=== PATIENT | female | born 1965 | race African-American/Black ===

== ENCOUNTER 2025-02-02 09:37 | Inpatient (IN) | payer MEDICAID, OTHER ==
[~2025-02-02] VITALS: Ht 177.8 cm; Wt 75.6 kg
--- NOTE | 2025-02-02 10:21 | ED.PDOC ---
HPI Comments This is a 59 year old female presenting to the ED with chief complaint of syncope. Patient reports that she had began to experience palpitations when getting up from bed on Thursday with associated SOB, so when she got up to get her Metoprolol, she sat down on the ground and had a syncopal episode. Patient relays that she felt herself shake prior to losing consciousness and is unsure if she had seizure-like activity as it was unwitnessed. Patient states that she then got up again to try and take her Metoprolol, but had another syncopal episode. Patient notes she has a previous diagnosis of A-Flutter. Patient relays that she started to get an associated left sided headache yesterday. Patient reports that she had a previous injury on Thursday to her right knee with swelling and pain still present at this time. Patient states she was brought in by her daughter to urgent care, however, they advised her to come to the ED for her complaint today. Patient denies any nausea, vomiting, chest pain, dizziness, fever, chills, head injury, or abdominal pain. Chief Complaint: Syncope Time Seen by MD: 10:16 Reviewed Notes: Nurses Notes, Medications, Allergies Allergies: Coded Allergies: NO KNOWN ALLERGIES (Unverified , 02/02/25) Information Source: Patient, Relative (Child) Mode of Arrival: Ambulatory Severity: Moderate Timing: Days Duration: Since onset Prehospital treatment: None Radiation: No Radiation Onset: At Rest Associated Signs and Symptoms: SOB, Palpitations Past Medical History Past Medical History (Other): A-Flutter Surgical History: VISCOSITY INSPECTOR History: Denies all VISCOSITY INSPECTOR Hx Family History Family History: Family hx of heart zachariah Social History Smoker: Cigarettes Alcohol: Occasionally Drugs: Denies Drug Use Lives In: Home Constitutional: denies: chills, diaphoresis, fatigue, fever, malaise, sweats, weakness, others EENTM: denies: blurred vision, double vision, ear bleeding, ear discharge, ear drainage, ear pain, ear ringing, eye pain, eye redness, hearing loss, mouth pain, mouth swelling, nasal discharge, nose bleeding, nose congestion, nose pain, photophobia, tearing, throat pain, throat swelling, voice changes, others Respiratory: reports: shortness of breath; denies: cough, hemoptysis, orthopnea, SOB at rest, SOB with excertion, stridor, wheezing, others Cardiovascular: reports: lightheadedness, palpitations, syncope; denies: chest pain, dizzy spells, diaphoresis, Dyspnea on exertion, edema, irregular heart beat, left arm pain, PND, others Gastrointestinal: denies: abdomen distended, abdominal pain, blood streaked bowels, constipated, diarrhea, dysphagia, difficulty swallowing, hematemesis, melena, nausea, poor appetite, poor fluid intake, rectal bleeding, rectal pain, vomiting, others Genitourinary: denies: abnormal vagina bleeding, burning, dyspareunia, dysuria, flank pain, frequency, hematuria, incontinence, pain, , vagina discharge, urgency, others Neurological: reports: headache; denies: dizziness, fainting, left sided numbness, left sided weakness, numbness, paresthesia, pre-existing deficit, right sided numbness, right sided weakness, seizure, speech problems, tingling, tremors, weakness, others Musculoskeletal: reports: others (Rt knee pain and swelling); denies: back pain, gout, joint pain, joint swelling, muscle pain, muscle stiffness, neck pain Integumetry: denies: bruises, change in color, change in hair/nails, dryness, laceration, lesions, lumps, rash, wounds, others Allergic/Immunocompromised: denies: Difficulty Healing, Frequent Infections, Hives, Itching, others Hematologic/Lymphatic: denies: anemia, blood clots, easy bleeding, easy bruising, swollen glands, others Endocrine: denies: excessive hunger, excessive sweating, excessive thirst, excessive urination, flushing, intolerance to cold, intolerance to heat, une xplained weight gain, unexplained weight loss, others Psychiatric: denies: anxiety, bipolar disorder, depression, hopeless, panic disorder, schizophrenia, sleepless, suicidal, others All Other Systems: Reviewed and Negative Physical Exam General Appearance: Moderate Distress HEENT: Normal ENT Inspection, Pharynx Normal, TMs Normal Neck: Full Range of Motion, Non-Tender, Normal, Normal Inspection Respiratory: Chest Non-Tender, Lungs Clear, No Accessory Muscle Use, No Respiratory Distress, Normal Breath Sounds Cardiovascular: No Edema, No JVD, No Murmur, No Gallop, Normal Peripheral Pulses, Regular Rate/Rhythm Breast Exam: Deferred Gastrointestinal: No Organomegaly, Non Tender, No Pulsatile Mass, Normal Bowel Sounds, Soft Genitalia: Deferred Pelvic: Deferred Rectal: Deferred Extremities: No calf tenderness, Normal capillary refill, Normal inspection, Normal range of motion, Non-tender, No pedal edema Musculoskeletal : Apperance: Normal Neurologic: Alert, sheep sticker II-XII nml as Tested, No Motor Deficits, Normal Affect, Normal Mood, No Sensory Deficits Cerebellar Function: Normal Reflexes: Normal Skin: Dry, Normal Color, Warm Lymphatic: No Adenopathy Was a procedure done? Was a procedure done?: No CP Differential Dx Differential Diagnosis: Angina, IL, Pulmonary Embolus, Other (syncope ) Differential Diagnosis: CHF X-Ray, Labs, Meds, VS Vital Signs Date Time Temp Pulse Resp B/P (MAP) Pulse Ox O2 Delivery O2 Flow Rate FiO2 02/02/25 12:11 97.6 84 17 103/68 (80) 96 97.6 02/02/25 09:38 97.0 76 18 164/91 95 97.0 Lab Test 02/02/25 11:17 Range/Units White Blood Count 4.1 L 4.4-10.8 10^3/uL Red Blood Count 4.19 4.0-5.20 10^6/uL Hemoglobin 13.5 12.2-16.2 g/dL Hematocrit 39.6 36.0-46.0 % Mean Corpuscular Volume 94.6 80.0-100.0 fL Mean Corpuscular Hemoglobin 32.3 H 28.0-32.0 pg Mean Corpuscular Hemoglobin Concent 34.2 32.0-36.0 g/dL Red Cell Distribution Width 13.4 11.8-14.3 % Platelet Count 268 140-450 10^3/uL Mean Platelet Volume 6.8 L 6.9-10.8 fL Neutrophils (%) (Auto) 53.6 37.0-80.0 % Lymphocytes (%) (Auto) 35.8 10.0-50.0 % Monocytes (%) (Auto) 8.0 0.0-12.0 % Eosinophils (%) (Auto) 1.6 0.0-7.0 % Basophils (%) (Auto) 1.0 0.0-2.0 % Neutrophils # (Auto) 2.2 1.6-8.6 10 ^3/uL Lymphocytes # (Auto) 1.5 0.4-5.4 10 ^3/uL Monocytes # (Auto) 0.3 0-1.3 10 ^3/uL Eosinophils # (Auto) 0.1 0-0.8 10 ^3/uL Basophils # (Auto) 0 0-0.2 10 ^3/uL Nucleated Red Blood Cells 0.1 % Sodium Level 139 136-145 mmol/L Potassium Level 3.9 3.5-5.1 mmol/L Chloride Level 103 98-107 mmol/L Carbon Dioxide Level 25 20-31 mmol/L Anion Gap 11 5-15 Blood Urea Nitrogen 9 9-23 mg/dL Creatinine 0.73 0.550-1.02 mg/dL Glomerular Filtration Rate Calc 94 >90 mL/min BUN/Creatinine Ratio 12.3 10.0-20.0 Serum Glucose 81 74-106 mg/dL Calcium Level 9.3 8.7-10.4 mg/dL Troponin I High Sensitivity 3 L </=34 ng/L Chest XR indicates: No evidence of acute disease in the chest. CT Head indicates: 1. Chronic ischemic changes without evidence of acute intracranial process. 2. Small amount of fluid in the left mastoid air cells may be due to sterile fluid or mastoiditis. The patient's CBC is within normal limits The chemistry panel is within normal limits The troponin is negative An IV Hep-Lock was established. There is a concern that the patient had these episodes of syncope and so the patient will be admitted at this time with a diagnosis of autonomic dysfunction Images Reviewed?: Images reviewed and evaluated by me Time of 1ST Reevaluation: 12:32 Reevaluation 1ST: Unchanged Patient Education/Counseling: Diagnosis, Treatment, Prognosis Family Education/Counseling: Diagnosis, Treatment, Prognosis SEPSIS Sepsis Screen Date sepsis recognized/suspect: Feb 02, 2025 Time Sepsis recognized/suspect: 0940 Recent Procedure: No On Antibiotic Therapy: No Respiratory Rate >20: No Heart Rate >90: No Temp<36 C (96.8 F) or >38.3 C: No SBP <90 or MAP <65 mmHG: No New Acute Mental Status Change: No Is the patient on CPAP, BIPAP,: No Physician Orders Urinalysis (02/02/25 10:15) Chest Two Views Routine (02/02/25 10:15) Heplock Iv (02/02/25 10:15) Dehydration Plant Operator (02/02/25 10:15) Blood Pressure (02/02/25 10:15) Pulse Oximetry (02/02/25 10:15) Electrocardigram (02/02/25 10:15) Head Without Contrast (02/02/25 10:15) Drug Screen (02/02/25 10:15) Troponin-I Hs (02/02/25 11:15) Troponin-I Hs (02/02/25 13:15) Electrocardigram (02/02/25 11:15) Electrocardigram (02/02/25 13:15) Vital Signs Date Time Temp Pulse Resp B/P (MAP) Pulse Ox O2 Delivery O2 Flow Rate FiO2 02/02/25 12:11 97.6 84 17 103/68 (80) 96 97.6 02/02/25 09:38 97.0 76 18 164/91 95 97.0 Laboratory Tests Test 02/02/25 11:17 White Blood Count 4.1 10^3/uL (4.4-10.8) L Departure 1 Departure Time of Disposition: 12:32 Impression: Primary Impression: Autonomic dysfunction Additional Impression: Generalized weakness Disposition: ADMITTED INPATIENT Admit to: Tele Condition: Fair Critical Care Note Critical Care Time?: No Stability Stability form required: Yes Unstable for transfer: Telemetry monitoring (Telemetry monitoring required), ED Physician Assesment (Clinical assesment) Heart Score Heart Score: Heart Score Response (Comments) Value History Highly Suspicious 2 EKG Normal 0 Age 45-64 1 Risk Factors 1 or 2 risk factors 1 Troponin Normal limit 0 Total 4 I personally scribed for WANDA ARCHULETA MD ([email or web address]) on 02/02/25 at 10:21. Electronically submitted by Jaime Dwyer ([email or web address]). I personally scribed for WANDA ARCHULETA MD ([email or web address]) on 02/02/25 at 12:18. Electronically submitted by Jaime Dwyer ([email or web address]). WANDA ARCHULETA MD Feb 02, 2025 10:21
--- NOTE | 2025-02-02 10:49 | DVH ---
EXAM: CT HEAD WITHOUT CONTRAST HISTORY: [place] COMPARISON: None TECHNIQUE: Noncontrast axial CT images of the head were performed. Sagittal and coronal reformatted i mages were obtained. This CT exam was performed using 1 or more of the following dose reduction techn iques: Automated exposure control, adjustment of the mA and/or kv according to patient size, or the u se of iterative reconstruction techniques. Radiation Dose: CTDI volume is 51.97 mGy. Dose-length product is 918.67 mGy*cm FINDINGS: No intracranial hemorrhage, mass, midline shift, hydrocephalus, or evidence of acute large vessel inf arct. There is mild decreased attenuation in the periventricular white matter. There is mildly diverg ent optic gaze. The partially-visualized paranasal sinuses are clear. There is a small amount of flui d in the caudal portion of the left mastoid air cells. The right mastoid air cells and bilateral midd le ear spaces are clear. No cranial fracture or scalp edema. IMPRESSION: 1. Chronic ischemic changes without evidence of acute intracranial process. 2. Small amount of fluid in the left mastoid air cells may be due to sterile fluid or mastoiditis.
--- NOTE | 2025-02-02 10:51 | DVH ---
CLINICAL INFORMATION: 59 years old, Female; syncope. TECHNIQUE: Frontal and lateral chest radiographs were obtained. COMPARISON: None FINDINGS: Lungs: Clear. Cardiac: Heart size is within normal limits. Pulmonary vasculature: Unremarkable Mediastinum/sandra: Within normal limits. Bones: No evidence of acute osseous abnormality. Other: No other significant finding. IMPRESSION: No evidence of acute disease in the chest.
[2025-02-02 11:38] LABS: Hematocrit 39.6 % (36.0-46.0); Hemoglobin 13.5 g/dL (12.2-16.2); Mean Corpuscular Hemoglobin 32.3 pg (28.0-32.0); Mean Corpuscular Volume 94.6 fL (80.0-100.0); Nucleated Red Blood Cells % 0.1 %
[2025-02-02 11:47] LABS: Chloride 103 mmol/L (98-107); Potassium 3.9 mmol/L (3.5-5.1); Sodium 139 mmol/L (136-145)
[2025-02-02 11:48] LABS: Anion Gap 11 (5-15); Calcium 9.3 mg/dL (8.7-10.4); Carbon Dioxide 25 mmol/L (20-31)
[2025-02-02 11:53] LABS: BUN/Creatinine Ratio 12.3 (10.0-20.0); Glucose 81 mg/dL (74-106)
[2025-02-02 11:54] LABS: Blood Urea Nitrogen 9 mg/dL (9-23)
[2025-02-02 16:05] LABS: Urine Protein, UAD TRACE (Negative)
[2025-02-02 16:15] LABS: Amphetamine Screen, Urine Neg (NEGATIVE); Barbiturate Scree,Urine Neg (NEGATIVE); Benzodiazephine Screen, Urine Neg (NEGATIVE); Cocaine Screen, Urine Neg (NEGATIVE); Opiate Scree,Urine Neg (NEGATIVE)
[2025-02-02 16:16] LABS: Cannabinoid Screen, Urine Neg (NEGATIVE); Phencyclidine Screen, Urine Neg (NEGATIVE)
[2025-02-02] MEDS ORDERED: ONDANSETRON HCL 4 MG/2 ML VIAL IV PRN (17:15)
[2025-02-02] MEDS ORDERED: NITROGLYCERIN 0.4 MG SL TAB SL PRN (17:15)
[2025-02-02] MEDS ORDERED: ACETAMINOPHEN 325 MG TAB PO PRN (17:15)
[2025-02-02] MEDS ORDERED: MORPHINE SULFATE 4 MG/ML SYR/VIAL IV PRN (17:45)
--- NOTE | 2025-02-02 18:25 | DVH ---
Indication: syncope Technique: Real-time ultrasound images of the neck vessels with castillo-scale, color and wave Doppler we re obtained. Comparison: None Findings: The following peak systolic velocities were recorded in cm/sec: Right internal carotid: 104 Right common carotid: 74 Right external carotid: 74 Right internal/common carotid ratio: 1.4 Left internal carotid: 49, proximal velocity of 14 Left common carotid: 44 Left external carotid: 31 Left internal/common carotid ratio: 1.1 Right vertebral artery: Patent with normal antegrade direction of flow. Left vertebral artery: Patent with normal antegrade direction of flow. Impression: There is severely decreased velocity within the left ICA concerning for severe stenosis and/or thromb osis occlusion of the proximal left ICA. Recommend CT angiogram neck and neurology consultation. Findings discussed with WANDA ARCHULETA at 02/02/2025 08:26 PM, and acknowledged receipt and understand ing of the findings. ..
[2025-02-02] MEDS: IOHEXOL 350 MG/ML 100ML IJ ONE (18:44)
[2025-02-02 18:47] VITALS: PULSE 84; RESP 20; O2SAT 95
--- NOTE | 2025-02-02 19:07 | DVHHP2 ---
History of Present Illness Reason for Visit: Syncope History of Present Illness 59-year-old female presents for evaluation of syncopal events. Patient reports having two syncopal she felt palpitations prior to the episodes. She states that when she regained consciousness she was still having a palpitations with associated shortness for breath and diaphoresis. Currently denies any chest pain or shortness for breath. She does report a history of atrial flutter. No other acute complaints reported. Past Medical History A flutter Past Surgical History Family History Noncontributory Smoke: No ALCOHOL: none Drugs: None Lives: with Family Review of Systems Review of Systems Review of systems are currently negative otherwise addressed in HPI. Allergies: Coded Allergies: NO KNOWN ALLERGIES (Unverified , 02/02/25) Medications Current Medications Medications Dose Ordered Sig/Beata Route Start Time Stop Time Status Last Admin Dose Admin Nitroglycerin 0.4 mg Q5MINP PRN SL 02/02/25 17:15 Morphine Sulfate 2 mg Q30M PRN IV 02/02/25 17:45 Ondansetron HCl 4 mg Q4HP PRN IV 02/02/25 17:15 Acetaminophen 650 mg Q6HP PRN PO 02/02/25 17:15 Exam Vital Signs Vital Signs Date Time Temp Pulse Resp B/P (MAP) Pulse Ox O2 Delivery O2 Flow Rate FiO2 02/02/25 18:47 84 20 95 Room Air* 0 21 02/02/25 17:49 98.6 126/77 (93) 98.6 Exam Gen: 59-year-old female in mild distress. Skin: Warm, dry, normal color and texture, no rash. HEENT: Normocephalic atraumatic, mucous membranes moist and pink. Neck: Cervical and supraclavicular nodes normal without enlargement, trachea is midline, thyroid gland is normal without masses. Pulmonary: Clear to auscultation and percussion bilaterally. Cardiac: Regular rate and rhythm. No murmur Abdomen: Soft, nontender, nondistended, bowel sounds present all 4 quadrants, no guarding, no rigidity, no organomegaly. Extremities: No cyanosis, clubbing, no edema Neuro: Cranial nerves II through XII grossly intact, normal affect and speech, no focal motor deficits. Labs/Xrays ORDERING PHYSICIAN: WANDA ARCHULETA MD PROCEDURE(s): CXR2 - CHEST TWO VIEWS ROUTINE REASON: syncope ORDER NUMBER(s): [id number], ACCESSION NUMBER(s): [id number] CLINICAL INFORMATION: 59 years old, Female; syncope. TECHNIQUE: Frontal and lateral chest radiographs were obtained. COMPARISON: None FINDINGS: Lungs: Clear. Cardiac: Heart size is within normal limits. Pulmonary vasculature: Unremarkable Mediastinum/sandra: Within normal limits. Bones: No evidence of acute osseous abnormality. Other: No other significant finding. IMPRESSION: No evidence of acute disease in the chest. ATED BY: CHRISTIANO TRUJILLO DO DICTATED DATE/TIME: 02/02/25 1048 ORDERING PHYSICIAN: WANDA ARCHULETA MD PROCEDURE(s): HWOCT - HEAD WITHOUT CONTRAST REASON: [place] ORDER NUMBER(s): [id number], ACCESSION NUMBER(s): [id number] EXAM: CT HEAD WITHOUT CONTRAST HISTORY: [place] COMPARISON: None TECHNIQUE: Noncontrast axial CT images of the head were performed. Sagittal and coronal reformatted images were obtained. This CT exam was performed using 1 or more of the following dose reduction techniques: Automated exposure control, adjustment of the mA and/or kv according to patient size, or the use of iterative reconstruction techniques. Radiation Dose: CTDI volume is 51.97 mGy. Dose-length product is 918.67 mGy*cm FINDINGS: No intracranial hemorrhage, mass, midline shift, hydrocephalus, or evidence of acute large vessel infarct. There is mild decreased attenuation in the periventricular white matter. There is mildly divergent optic gaze. The partially-visualized paranasal sinuses are clear. There is a small amount of fluid in the caudal portion of the left mastoid air cells. The right mastoid air cells and bilateral middle ear spaces are clear. No cranial fracture or scalp edema. IMPRESSION: 1. Chronic ischemic changes without evidence of acute intracranial process. 2. Small amount of fluid in the left mastoid air cells may be due to sterile fluid or mastoiditis. Labs Test 02/02/25 14:00 02/02/25 13:57 02/02/25 11:17 Range/Units Urine Color Yellow Yellow Urine Clarity Turbid H Clear Urine pH 5.0 5.0-9.0 Urine Specific [place] 1.020 1.001-1.035 Urine Protein Trace H Negative Urine Ketones Trace Negative Urine Blood 1+ H Negative /uL Urine Nitrite Negative Negative Urine Bilirubin Negative Negative Urine Urobilinogen Normal Negative mg/dL Urine Leukocyte Esterase Trace Negative /uL Urine RBC 3 0 - 4 /hpf Urine Microscopic WBC 6 H 0-5 /HPF Urine Squamous Epithelial Cells Mod <5 /hpf Urine Bacteria Few H None Seen /hpf Urine Mucus Few None Seen Urine Glucose Normal Normal mg/dL Urine Opiates Screen Neg NEGATIVE Urine Fentanyl Screen Neg NEGATIVE Urine Barbiturates Screen Neg NEGATIVE Urine Phencyclidine Screen Neg NEGATIVE Urine Amphetamines Screen Neg NEGATIVE Urine Benzodiazepines Screen Neg NEGATIVE Urine Cocaine Screen Neg NEGATIVE Urine Cannabinoids Screen Neg NEGATIVE Troponin I High Sensitivity 3 L </=34 ng/L White Blood Count 4.1 L 4.4-10.8 10^3/uL Red Blood Count 4.19 4.0-5.20 10^6/uL Hemoglobin 13.5 12.2-16.2 g/dL Hematocrit 39.6 36.0-46.0 % Mean Corpuscular Volume 94.6 80.0-100.0 fL Mean Corpuscular Hemoglobin 32.3 H 28.0-32.0 pg Mean Corpuscular Hemoglobin Concent 34.2 32.0-36.0 g/dL Red Cell Distribution Width 13.4 11.8-14.3 % Platelet Count 268 140-450 10^3/uL Mean Platelet Volume 6.8 L 6.9-10.8 fL Neutrophils (%) (Auto) 53.6 37.0-80.0 % Lymphocytes (%) (Auto) 35.8 10.0-50.0 % Monocytes (%) (Auto) 8.0 0.0-12.0 % Eosinophils (%) (Auto) 1.6 0.0-7.0 % Basophils (%) (Auto) 1.0 0.0-2.0 % Neutrophils # (Auto) 2.2 1.6-8.6 10 ^3/uL Lymphocytes # (Auto) 1.5 0.4-5.4 10 ^3/uL Monocytes # (Auto) 0.3 0-1.3 10 ^3/uL Eosinophils # (Auto) 0.1 0-0.8 10 ^3/uL Basophils # (Auto) 0 0-0.2 10 ^3/uL Nucleated Red Blood Cells 0.1 % Sodium Level 139 136-145 mmol/L Potassium Level 3.9 3.5-5.1 mmol/L Chloride Level 103 98-107 mmol/L Carbon Dioxide Level 25 20-31 mmol/L Anion Gap 11 5-15 Blood Urea Nitrogen 9 9-23 mg/dL Creatinine 0.73 0.550-1.02 mg/dL Glomerular Filtration Rate Calc 94 >90 mL/min BUN/Creatinine Ratio 12.3 10.0-20.0 Serum Glucose 81 74-106 mg/dL Calcium Level 9.3 8.7-10.4 mg/dL SEPSIS Sepsis Screen Date sepsis recognized/suspect: Feb 02, 2025 Time Sepsis recognized/suspect: 1801 Recent Procedure: No On Antibiotic Therapy: No Respiratory Rate >20: No Heart Rate >90: No Temp<36 C (96.8 F) or >38.3 C: No SBP <90 or MAP <65 mmHG: No New Acute Mental Status Change: No Is the patient on CPAP, BIPAP,: No Physician Orders Admit (02/02/25 17:06) Nitroglycerin Sublingual (Ntrostat Subli (02/02/25 17:15) Stat Ekg For Chest Pain (02/02/25 17:06) Notify Md Of Changes From Base (02/02/25 17:06) Manager Security And Safety For 24 Hours (02/02/25 17:06) Emergency Dysrhythmia Protocol (02/02/25 17:06) Rhythm Strips Once Every Shift (02/02/25 17:06) Oxygen By Nasal Cannula (02/02/25 17:06) * Cardiology Consult (02/02/25 17:06) Basic Metabolic Panel (02/03/25 04:00) Ondansetron Hcl (Zofran) (02/02/25 17:15) Cardiac Diet-2gna,Lofat,Lochol (02/02/25 Dinner) Echo 2d Mode Cardiac Dop (02/02/25 17:06) Carotid Duplx W Color Dop (02/02/25 17:06) Condition: Fair (02/02/25 17:06) Acetaminophen Tablet (Tylenol Tablet) (02/02/25 17:15) Bedrest With Bathroom Privileg (02/02/25 17:06) Morphine Sulfate Injection (02/02/25 17:45) Ct Angio Neck Contrast (02/02/25 18:23) Echo 2d Mode Cardiac Dop (02/02/25 18:51) Vital Signs Date Time Temp Pulse Resp B/P (MAP) Pulse Ox O2 Delivery O2 Flow Rate FiO2 02/02/25 18:47 84 20 95 Room Air* 0 21 02/02/25 17:49 98.6 84 20 126/77 (93) 99 98.6 02/02/25 17:49 84 02/02/25 14:58 100 16 122/75 (91) 95 02/02/25 12:11 97.6 84 17 103/68 (80) 96 97.6 Laboratory Tests Test 02/02/25 11:17 White Blood Count 4.1 10^3/uL (4.4-10.8) L Assessment/Plan Assessment/Plan Assessment next tissues Plan Admit the patient to telemetry to the hospitalist Cardiology consultation Carotid ultrasound pending Echocardiogram pending Continue treatment per orders. Plan discussed with: Patient My Orders Orders - JOVAN MICHAUD Procedure Category Date Status Time Admit ADMIT 02/02/25 Transmitted 17:06 Nitroglycerin PHA 02/02/25 In Process Sublingual (Ntrostat 17:15 Stat Ekg For Chest SMITHA 02/02/25 In Process Pain 17:06 Notify Of Changes SMITHA 02/02/25 In Process From Base 17:06 Manager Security And Safety For SMITHA 02/02/25 In Process 24 Hours 17:06 Emergency Dysrhythmia SMITHA 02/02/25 In Process Protocol 17:06 Rhythm Strips Once SMITHA 02/02/25 In Process Every Shift 17:06 Oxygen By Nasal RT 02/02/25 Transmitted Cannula 17:06 * Cardiology Consult CONS 02/02/25 Transmitted 17:06 Basic Metabolic Panel LAB 02/03/25 Verified 04:00 Ondansetron Hcl PHA 02/02/25 In Process (Zofran) 17:15 Cardiac DIET 02/02/25 Transmitted Diet-2gna,Lofat,Lochol Dinner Echo 2d Mode Cardiac US 02/02/25 Logged DOP 17:06 Carotid Duplx W Color US 02/02/25 Resulted DOP 17:06 Condition: Fair SMITHA 02/02/25 In Process 17:06 Acetaminophen Tablet PHA 02/02/25 In Process (Tylenol Tablet) 17:15 Bedrest With Bathroom SMITHA 02/02/25 In Process Privileg 17:06 Morphine Sulfate PHA 02/02/25 In Process Injection 17:45 Date of Service: Feb 02, 2025 Billing Provider: JOVAN MICHAUD Common Visit Codes: [id number] INP/OBS CARE (HIGH) JOVAN MICHAUD Feb 02, 2025 19:07
--- NOTE | 2025-02-02 21:44 | DVH ---
INDICATION: pain and possible occlusion COMPARISON: Ultrasound carotid 02/02/2025 TECHNIQUE:CTA neck with intravenous contrast. 3D/MIP image postprocessing was performed and images we re used for interpretation and reporting. Radiation Dose Information: CT Dose: CTDI volume is 25.88 mGy. Dose-length product is 2.47 mGy*cm FINDINGS: Normal 3-vessel origin left-sided aortic arch with motion artifact limiting evaluation of the proxima l major arch vessels. There is also limited evaluation of the left subclavian artery due to artifact from contrast within adjacent venous structures. The visualized bilateral subclavian arteries unremar kable. Motion artifact significantly limits evaluation of the distal common carotid arteries with the visualized common carotid arteries unremarkable. No significant atherosclerotic calcification of the carotid bulbs bilaterally. There is tortuosity of the right mid cervical ICA. Otherwise, the right ICA is unremarkable. There is ectasia of the most proximal left cervical ICA with moderate to severe diminutive appearance of the remainder of the left cervical ICA and left intracranial ICA. There is focal severe narrowing of the left cavernous ICA. Mild hypoplasia of the left MCA compared to the right. Bilateral cervical vertebral arteries unremarkable with slight dominance of the right. There is 0.8 cm right thyroid lobe nodule. Mediastinal lymphadenopathy which may be reactive. Biapica l emphysematous changes. Moderate to severe degenerative changes of the cervical spine. IMPRESSION: Artifact limits evaluation of the proximal brachiocephalic, common carotid and left subclavian artery with also limited evaluation of the distal bilateral common carotid arteries by motion. Ectatic appearance of the left proximal cervical ICA with moderate to significant diminutive appearan ce of the remainder of the left cervical and intracranial ICAs with focal significant narrowing of th e left cavernous intracranial ICA. Tortuosity of the right mid cervical ICA. Otherwise, the right cervical ICA is unremarkable. Distal internal carotid artery diameter as the denominator for stenosis measurement: MILD = <50% stenosis. MODERATE = 50-69% stenosis. SEVERE = 70-89% stenosis. CRITICAL = 90-99% stenosis. OCCLUDED = 100% stenosis. All CT scans at this medical facility are performed using dose modulation techniques as appropriate t o a performed exam including the following: Automated exposure control was utilized; adjustment of th e MA and/or KV according to patient size; and use of iterative reconstruction technique. CAROTID STENOSIS REFERENCE
--- NOTE | 2025-02-02 22:19 | DVHINCON2 ---
Date of service: Feb 02, 2025 Referring Physician Kali Reason for Consultation Syncope History of Present Illness This is a 59 year old female with a PMH of A-Flutter who presented to the ED with a complaint of syncope. Patient reports that she had began to experience heart palpitations when getting up from bed on Thursday with associated SOB, so when she got up to get her Metoprolol, she sat down on the ground and had a syncopal episode. Patient relays that she felt herself shake prior to losing consciousness and is unsure if she had seizure-like activity as it was unwitnessed. Patient states that she then got up again to try and take her Metoprolol, but had another syncopal episode. Patient notes she has a previous diagnosis of A-Flutter. Patient relays that she started to get an associated left sided headache yesterday. Patient reports that she had a previous injury on Thursday to her right knee with swelling and pain still present at this time. Patient states she was brought in by her daughter to urgent care, however, they advised her to come to the ED for her complaint today. Troponin is negative. Chest x-ray shows NAD. Patient was admitted to the hospital. I am asked to consult on this patient. Allergies: Coded Allergies: NO KNOWN ALLERGIES (Unverified , 02/02/25) Current Medications Current Medications Medications (Trade) Dose Ordered Sig/Beata Route PRN Reason Start Time Stop Time Status Last Admin Nitroglycerin (Ntrostat Sublingual) 0.4 mg Q5MINP PRN SL FOR CHEST PAIN 02/02/25 17:15 Morphine Sulfate 2 mg Q30M PRN IV FOR CHEST PAIN 02/02/25 17:45 Ondansetron HCl (Zofran) 4 mg Q4HP PRN IV NAUSEA / VOMITING 02/02/25 17:15 Acetaminophen (Tylenol Tablet) 650 mg Q6HP PRN PO PAIN SCALE 1-3 OR TEMP>100.4 02/02/25 17:15 Review of Systems Constitutional: denies: chills, diaphoresis, fatigue, fever, malaise, sweats, weakness, others EENTM: denies: blurred vision, double vision, ear bleeding, ear discharge, ear drainage, ear pain, ear ringing, eye pain, eye redness, hearing loss, mouth pain, mouth swelling, nasal discharge, nose bleeding, nose congestion, nose pain, photophobia, tearing, throat pain, throat swelling, voice changes, others Respiratory: reports: shortness of breath; denies: cough, hemoptysis, orthopnea, SOB at rest, SOB with excertion, stridor, wheezing, others Cardiovascular: reports: lightheadedness, palpitations, syncope; denies: chest pain, dizzy spells, diaphoresis, Dyspnea on exertion, edema, irregular heart beat, left arm pain, PND, others Gastrointestinal: denies: abdomen distended, abdominal pain, blood streaked bowels, constipated, diarrhea, dysphagia, difficulty swallowing, hematemesis, melena, nausea, poor appetite, poor fluid intake, rectal bleeding, rectal pain, vomiting, others Genitourinary: denies: abnormal vagina bleeding, burning, dyspareunia, dysuria, flank pain, frequency, hematuria, incontinence, pain, , vagina discharge, urgency, others Neurological: reports: headache; denies: dizziness, fainting, left sided numbness, left sided weakness, numbness, paresthesia, pre-existing deficit, ri ght sided numbness, right sided weakness, seizure, speech problems, tingling, tremors, weakness, others Musculoskeletal: reports: others (Rt knee pain and swelling); denies: back pain, gout, joint pain, joint swelling, muscle pain, muscle stiffness, neck pain Integumetry: denies: bruises, change in color, change in hair/nails, dryness, laceration, lesions, lumps, rash, wounds, others Allergic/Immunocompromised: denies: Difficulty Healing, Frequent Infections, Hives, Itching, others Hematologic/Lymphatic: denies: anemia, blood clots, easy bleeding, easy bruising, swollen glands, others Endocrine: denies: excessive hunger, excessive sweating, excessive thirst, excessive urination, flushing, intolerance to cold, intolerance to heat, unexplained weight gain, unexplained weight loss, others Psychiatric: denies: anxiety, bipolar disorder, depression, hopeless, panic disorder, schizophrenia, sleepless, suicidal, others All Other Systems: Reviewed and Negative Vital Signs Vital Signs Date Time Temp Pulse Resp B/P (MAP) Pulse Ox O2 Delivery O2 Flow Rate FiO2 02/02/25 18:47 84 20 95 Room Air* 0 21 02/02/25 17:49 98.6 126/77 (93) 98.6 Physical Exam GENERAL: Alert and oriented x 3. No acute distress. EYES: PERRL, EOMI. Anicteric. HENT: Moist mucous membranes. LUNGS: Clear to auscultation bilaterally. CARDIOVASCULAR: Regular rate and rhythm. ABDOMEN: Soft, nontender and nondistended. EXTREMITIES: No edema. NEUROLOGIC: No focal neurological deficits. SKIN: Warm, dry. Labs/Diagnostic Data Labs Test 02/02/25 14:00 02/02/25 13:57 02/02/25 11:17 Range/Units Urine Color Yellow Yellow Urine Clarity Turbid H Clear Urine pH 5.0 5.0-9.0 Urine Specific [place] 1.020 1.001-1.035 Urine Protein Trace H Negative Urine Ketones Trace Negative Urine Blood 1+ H Negative /uL Urine Nitrite Negative Negative Urine Bilirubin Negative Negative Urine Urobilinogen Normal Negative mg/dL Urine Leukocyte Esterase Trace Negative /uL Urine RBC 3 0 - 4 /hpf Urine Microscopic WBC 6 H 0-5 /HPF Urine Squamous Epithelial Cells Mod <5 /hpf Urine Bacteria Few H None Seen /hpf Urine Mucus Few None Seen Urine Glucose Normal Normal mg/dL Urine Opiates Screen Neg NEGATIVE Urine Fentanyl Screen Neg NEGATIVE Urine Barbiturates Screen Neg NEGATIVE Urine Phencyclidine Screen Neg NEGATIVE Urine Amphetamines Screen Neg NEGATIVE Urine Benzodiazepines Screen Neg NEGATIVE Urine Cocaine Screen Neg NEGATIVE Urine Cannabinoids Screen Neg NEGATIVE Troponin I High Sensitivity 3 L </=34 ng/L White Blood Count 4.1 L 4.4-10.8 10^3/uL Red Blood Count 4.19 4.0-5.20 10^6/uL Hemoglobin 13.5 12.2-16.2 g/dL Hematocrit 39.6 36.0-46.0 % Mean Corpuscular Volume 94.6 80.0-100.0 fL Mean Corpuscular Hemoglobin 32.3 H 28.0-32.0 pg Mean Corpuscular Hemoglobin Concent 34.2 32.0-36.0 g/dL Red Cell Distribution Width 13.4 11.8-14.3 % Platelet Count 268 140-450 10^3/uL Mean Platelet Volume 6.8 L 6.9-10.8 fL Neutrophils (%) (Auto) 53.6 37.0-80.0 % Lymphocytes (%) (Auto) 35.8 10.0-50.0 % Monocytes (%) (Auto) 8.0 0.0-12.0 % Eosinophils (%) (Auto) 1.6 0.0-7.0 % Basophils (%) (Auto) 1.0 0.0-2.0 % Neutrophils # (Auto) 2.2 1.6-8.6 10 ^3/uL Lymphocytes # (Auto) 1.5 0.4-5.4 10 ^3/uL Monocytes # (Auto) 0.3 0-1.3 10 ^3/uL Eosinophils # (Auto) 0.1 0-0.8 10 ^3/uL Basophils # (Auto) 0 0-0.2 10 ^3/uL Nucleated Red Blood Cells 0.1 % Sodium Level 139 136-145 mmol/L Potassium Level 3.9 3.5-5.1 mmol/L Chloride Level 103 98-107 mmol/L Carbon Dioxide Level 25 20-31 mmol/L Anion Gap 11 5-15 Blood Urea Nitrogen 9 9-23 mg/dL Creatinine 0.73 0.550-1.02 mg/dL Glomerular Filtration Rate Calc 94 >90 mL/min BUN/Creatinine Ratio 12.3 10.0-20.0 Serum Glucose 81 74-106 mg/dL Calcium Level 9.3 8.7-10.4 mg/dL Assessment Syncope. Plan/Recommendation I agree with your ongoing assessment and care of plan. Echocardiogram. Nitro SL. Morphine and Tylenol for pain management. Additional plan as per the hospital course. A total of 45 minutes was spent reviewing the patient record, examining the patient, making a diagnostic and therapeutic plan, discussing this plan with medical personnel, following up on diagnostic studies and following the patient for clinical stability excluding any and all procedures. At least 50% of this time was spent in direct, [id number] contact. Plan discussed with: Patient CAROLINAMARCELLO Betancourt MD Feb 02, 2025 20:55
[2025-02-02 23:13] VITALS: BP 145/84; PULSE 71; RESP 16; TEMP 97.8; O2SAT 100
[2025-02-03 01:06] VITALS: BP 113/76; PULSE 75; RESP 14; TEMP 97.9; O2SAT 98
[2025-02-03 05:00] VITALS: BP 112/71; PULSE 69; RESP 18; TEMP 98.6; O2SAT 96
[2025-02-03 06:20] LABS: Chloride 105 mmol/L (98-107); Sodium 140 mmol/L (136-145)
[2025-02-03 06:21] LABS: Anion Gap 8 (5-15); Calcium 9.0 mg/dL (8.7-10.4); Carbon Dioxide 27 mmol/L (20-31)
[2025-02-03 06:25] LABS: Potassium 3.4 mmol/L (3.5-5.1)
[2025-02-03 06:26] LABS: BUN/Creatinine Ratio 10.1 (10.0-20.0); Glucose 88 mg/dL (74-106)
[2025-02-03 06:27] LABS: Blood Urea Nitrogen 8 mg/dL (9-23)
[2025-02-03 08:00] VITALS: PULSE 72; PULSE 77; RESP 17; O2SAT 97
[2025-02-03 09:00] VITALS: BP 127/76; PULSE 77; RESP 17; TEMP 98; O2SAT 97
[2025-02-03 11:39] LABS: Hepatitis B Surface Antigen Negative (Negative)
[2025-02-03 12:34] VITALS: BP 121/75; PULSE 72; RESP 17; TEMP 98.1; O2SAT 97
[2025-02-03 12:56] LABS: Hepatitis C Antibody Negative (Negative)
--- NOTE | 2025-02-03 14:24 | DVHPN2 ---
Reviewed: Care Plan, H&P, Labs, Medications, Previous Orders, Radiology Changes from previous H/P or p: No Changes General: Per HPI Objective Vitals Vital Signs Date Time Temp Pulse Resp B/P (MAP) Pulse Ox O2 Delivery O2 Flow Rate FiO2 02/03/25 12:34 98.1 72 17 121/75 (90) 97 98.1 02/03/25 08:00 Room Air* 0 21 Intake/Output Intake and Output 02/03/25 07:00 Intake Total 420 ml Balance 420 ml Intake Oral 420 ml # Voids 2 General Appearance: Alert, Oriented X3, Cooperative HEENT: Atraumatic Neck: Carotid [place] Medications Current Medications Medications Dose Ordered Sig/Beata Route Start Time Stop Time Status Last Admin Dose Admin Nitroglycerin 0.4 mg Q5MINP PRN SL 02/02/25 17:15 Morphine Sulfate 2 mg Q30M PRN IV 02/02/25 17:45 Ondansetron HCl 4 mg Q4HP PRN IV 02/02/25 17:15 Acetaminophen 650 mg Q6HP PRN PO 02/02/25 17:15 Laboratory Results Laboratory Tests 02/02/25 11:17 02/03/25 05:14 Chemistry Test 02/03/25 05:14 Calcium Level 9.0 mg/dL (8.7-10.4) Urinalysis Test 02/02/25 14:00 Urine Color Yellow (Yellow) Urine Clarity Turbid (Clear) H Urine pH 5.0 (5.0-9.0) Urine Specific [place] 1.020 (1.001-1.035) Urine Protein Trace (Negative) H Urine Ketones Trace (Negative) Urine Blood 1+ /uL (Negative) H Urine Nitrite Negative (Negative) Urine Bilirubin Negative (Negative) Urine Urobilinogen Normal mg/dL (Negative) Urine Leukocyte Esterase Trace /uL (Negative) Urine RBC 3 /hpf (0 - 4) Urine Microscopic WBC 6 /HPF (0-5) H Urine Squamous Epithelial Cells Mod /hpf (<5) Urine Bacteria Few /hpf (None Seen) H Urine Mucus Few (None Seen) Urine Glucose Normal mg/dL (Normal) Labs and/or images reviewed: Labs reviewed by me, Image(s) reviewed by me Assessment/Plan Assessment/Plan 59-year-old female presents for evaluation of syncopal events. Patient reports having two syncopal she felt palpitations prior to the episodes. She states that when she regained consciousness she was still having a palpitations with associated shortness for breath and diaphoresis. Currently denies any chest pain or shortness for breath. She does report a history of atrial flutter. No other acute complaints reported. Syncope, POA weakness palpitation Plan discussed with: Patient Date of Service: Feb 03, 2025 Billing Provider: KENDY HUTCHISON DO Common Visit Codes: [id number] INP/OBS CARE(HIGH) KENDY HUTCHISON DO Feb 03, 2025 14:24
--- NOTE | 2025-02-03 23:24 | DVHPN2 ---
Progress Note - Dictate Date Seen: Feb 03, 2025 Medical Necessity Reason Pt with a Central, PICC or Fol: No Subjective Patient was seen and evaluated in follow up. No overnight events. K 3.4. Echocardiogram is ordered to evaluate cardiac function. Telemetry reviewed. vital signs Vital Sign Date Time Temp Pulse Resp B/P (MAP) Pulse Ox O2 Delivery O2 Flow Rate FiO2 02/03/25 09:00 98.0 77 17 127/76 (93) 97 98.0 02/03/25 08:00 Room Air* 0 21 Total Intake and Output 02/02/25 02/02/25 02/03/25 15:00 23:00 07:00 Intake Total 420 ml Balance 420 ml medications Current Medications Medications Dose Ordered Sig/Beata Route Start Time Stop Time Status Last Admin Dose Admin Nitroglycerin 0.4 mg Q5MINP PRN SL 02/02/25 17:15 Morphine Sulfate 2 mg Q30M PRN IV 02/02/25 17:45 Ondansetron HCl 4 mg Q4HP PRN IV 02/02/25 17:15 Acetaminophen 650 mg Q6HP PRN PO 02/02/25 17:15 objective GENERAL: Alert and oriented x 3. No acute distress. EYES: PERRL, EOMI. Anicteric. HENT: Moist mucous membranes. LUNGS: Clear to auscultation bilaterally. CARDIOVASCULAR: Regular rate and rhythm. ABDOMEN: Soft, nontender and nondistended. EXTREMITIES: No edema. NEUROLOGIC: No focal neurological deficits. SKIN: Warm, dry. laboratory and microbiology Laboratory Tests 02/03/25 05:14 02/02/25 11:17 Test 02/03/25 05:14 Range/Units Serum Glucose 88 74-106 mg/dL Problem List Syncope. Assessment/Plan Continued all current supportive medical care. Echocardiogram. Nitro SL. Morphine for pain management. Additional plan as per the hospital course. Plan discussed with: Patient MARCELLO FIGUEROA MD Feb 03, 2025 12:14
--- NOTE | 2025-02-06 23:37 | DVHDS2 ---
Discharge Summary Date of Admission Feb 02, 2025 at 17:06 Date of Discharge: Feb 03, 2025 Labs/Diagnostic Data: Laboratory Results Test 02/03/25 05:14 02/02/25 14:00 02/02/25 13:57 02/02/25 11:17 Sodium Level 140 mmol/L (136-145) Potassium Level 3.4 mmol/L (3.5-5.1) Chloride Level 105 mmol/L (98-107) Carbon Dioxide Level 27 mmol/L (20-31) Anion Gap 8 (5-15) Blood Urea Nitrogen 8 mg/dL (9-23) Creatinine 0.79 mg/dL (0.550-1.02) Glomerular Filtration Rate Calc 85 mL/min (>90) BUN/Creatinine Ratio 10.1 (10.0-20.0) Serum Glucose 88 mg/dL (74-106) Calcium Level 9.0 mg/dL (8.7-10.4) Hepatitis B Surface Antigen Negative (Negative) Hepatitis C Antibody Negative (Negative) Urine Color Yellow (Yellow) Urine Clarity Turbid (Clear) Urine pH 5.0 (5.0-9.0) Urine Specific [place] 1.020 (1.001-1.035) Urine Protein Trace (Negative) Urine Ketones Trace (Negative) Urine Blood 1+ /uL (Negative) Urine Nitrite Negative (Negative) Urine Bilirubin Negative (Negative) Urine Urobilinogen Normal mg/dL (Negative) Urine Leukocyte Esterase Trace /uL (Negative) Urine RBC 3 /hpf (0 - 4) Urine Microscopic WBC 6 /HPF (0-5) Urine Squamous Epithelial Cells Mod /hpf (<5) Urine Bacteria Few /hpf (None Seen) Urine Mucus Few (None Seen) Urine Glucose Normal mg/dL (Normal) Urine Opiates Screen Neg (NEGATIVE) Urine Fentanyl Screen Neg (NEGATIVE) Urine Barbiturates Screen Neg (NEGATIVE) Urine Phencyclidine Screen Neg (NEGATIVE) Urine Amphetamines Screen Neg (NEGATIVE) Urine Benzodiazepines Screen Neg (NEGATIVE) Urine Cocaine Screen Neg (NEGATIVE) Urine Cannabinoids Screen Neg (NEGATIVE) Troponin I High Sensitivity 3 ng/L (</=34) White Blood Count 4.1 10^3/uL (4.4-10.8) Red Blood Count 4.19 10^6/uL (4.0-5.20) Hemoglobin 13.5 g/dL (12.2-16.2) Hematocrit 39.6 % (36.0-46.0) Mean Corpuscular Volume 94.6 fL (80.0-100.0) Mean Corpuscular Hemoglobin 32.3 pg (28.0-32.0) Mean Corpuscular Hemoglobin Concent 34.2 g/dL (32.0-36.0) Red Cell Distribution Width 13.4 % (11.8-14.3) Platelet Count 268 10^3/uL (140-450) Mean Platelet Volume 6.8 fL (6.9-10.8) Neutrophils (%) (Auto) 53.6 % (37.0-80.0) Lymphocytes (%) (Auto) 35.8 % (10.0-50.0) Monocytes (%) (Auto) 8.0 % (0.0-12.0) Eosinophils (%) (Auto) 1.6 % (0.0-7.0) Basophils (%) (Auto) 1.0 % (0.0-2.0) Neutrophils # (Auto) 2.2 10 ^3/uL (1.6-8.6) Lymphocytes # (Auto) 1.5 10 ^3/uL (0.4-5.4) Monocytes # (Auto) 0.3 10 ^3/uL (0-1.3) Eosinophils # (Auto) 0.1 10 ^3/uL (0-0.8) Basophils # (Auto) 0 10 ^3/uL (0-0.2) Nucleated Red Blood Cells 0.1 % Other Laboratory Tests 02/03/25 05:14 02/02/25 11:17 Brief Hx & Hospital Course: 59-year-old female presents for evaluation of syncopal events. Patient reports having two syncopal she felt palpitations prior to the episodes. She states that when she regained consciousness she was still having a palpitations with associated shortness for breath and diaphoresis. Currently denies any chest pain or shortness for breath. She does report a history of atrial flutter. No other acute complaints reported. Syncope, POA weakness palpitation pt left AMA Condition at Discharge: Fair Final Diagnosis/Problems List see above Discharge Disposition: AMA Discharge Instruct/Medications No Active Prescriptions or Reported Meds Discharge Statement: "Patient was advised to return to the ER or call 911 if any headaches, dizziness, shortness of breath, chest pain, abdominal pain, bleeding, fevers, or worsening of medical condition. Patient was counseled about treatment plan, medications, possible side effects, patientverbalized understanding. All questions were answered to the best of my ability. This discharge took greater then 30 minutes in planning, reviewing documentation, counseling the patient, and discussing with other team members." ASSESSMENT ASSESSMENT Assessment Date of Service: Feb 03, 2025 Billing Provider: KENDY HUTCHISON DO Common Visit Codes: [id number]/OBS DISCH DAY >30min KENDY HUTCHISON DO Feb 06, 2025 23:37
== END 2025-02-03 16:15 | disposition left against medical advice (07) | DRG 201 ==
LOC: ER 09:37 → OVERFLOW 17:06 → TELE-EAST 22:40
PROVIDERS: ADMIT Internal Medicine; ATTEND Internal Medicine
DX: I48.92 Unspecified atrial flutter (principal); F17.210 Nicotine dependence, cigarettes, uncomplicated; Z53.29 Procedure and treatment not carried out because of patient's decision for other reasons; Z98.891 History of uterine scar from previous surgery; Z79.899 Other long term (current) drug therapy
CPT/HCPCS: 36415; 70450; 70498; 71046; 80048; 80307; 81001; 84484; 85025; 86803; 87340; 93886; G0378